=== PATIENT | male | born 1985 | race Caucasian/White ===

== ENCOUNTER 2020-12-12 16:41 | Emergency (ER) | payer SELFPAY ==
[~2020-12-12] VITALS: Ht 177.8 cm; Wt 140.6 kg
[2020-12-12 16:41] VITALS: BP_SYST 141
[2020-12-12 17:12] LABS: BASOPHILS # (AUTO) 0.1 K/uL (0.0-0.2); BASOPHILS % (AUTO) 0.9 % (0.0-2.0); EOSINOPHILS # (AUTO) 0.3 K/uL (0.0-0.4); HEMATOCRIT 41.1 % (36-54); HEMOGLOBIN 13.9 g/dL (14.0-18.0); LYMPHOCYTES # (AUTO) 2.1 K/uL (1.0-5.5); LYMPHOCYTES % (AUTO) 31.3 % (20.5-51.5); MEAN CORPUSCULAR HEMOGLOBIN 32 pg (27-31); MEAN CORPUSCULAR HGB CONC 34 % (32-36); MEAN CORPUSCULAR VOLUME 95 fL (79.0-98.0); MONOCYTES # (AUTO) 0.6 K/uL (0.0-1.0); MONOCYTES % (AUTO) 8.2 % (1.7-9.3); NEUTROPHILS # (AUTO) 3.7 K/uL (1.8-7.7); NEUTROPHILS % (AUTO) 54.6 % (40.0-70.0); PLATELET COUNT (AUTO) 189 K/uL (130-430); RED BLOOD CELL COUNT(AUTO) 4.34 MIL/uL (4.2-6.2); RED CELL DISTRIBUTION WIDTH 13.7 % (9.0-15.0); WHITE BLOOD COUNT (AUTO) 6.8 K/uL (4.8-10.8)
[2020-12-12 17:19] LABS: CALCIUM 8.7 mg/dL (8.4-11.0); CREATININE 0.87 mg/dL (0.55-1.30); POTASSIUM 3.5 mmol/L (3.5-5.1)
[2020-12-12 17:25] LABS: ALBUMIN 3.6 g/dL (3.4-4.8); TOTAL BILIRUBIN 0.4 mg/dL (0.0-1.0)
[2020-12-12 17:40] LABS: C-REACTIVE PROTEIN QUANT 0.4 mg/dL (0-0.5)
[2020-12-12] MEDS ORDERED: CLOT15CR5 TP (17:52)
[2020-12-12 18:01] VITALS: BP_SYST 136
== END 2020-12-12 18:01 | disposition home or self-care (01) ==
LOC: SED 16:41
DX: Z79.899 Other long term (current) drug therapy (principal); R60.0 Localized edema
CPT/HCPCS: 36415; 71045; 80053; 83605; 83880; 84484; 85025; 86140; 93005; 93971; 99285